=== PATIENT | male | born 1995 | race Hispanic/Latino ===

== ENCOUNTER 2017-06-24 16:19 | Emergency (ER) | payer BC, MEDICAID, OTHER ==
[2017-06-24 16:20] VITALS: BMI 23.5
[2017-06-24 16:34] VITALS: TEMP 98
--- NOTE | 2017-06-24 16:52 | C.PDOC ---
History Of Present Illness 22 year old male presents to the ED with complaints of pain to first and second toes of the right foot after slipping and stubbing toes on steps 20 minutes prior to arrival. Patient denies changes in sensation or other complaints at this time. Time Seen by Provider: 06/24/17 16:30 Chief Complaint (Nursing): Lower Extremity Problem/Injury History Per: Patient History/Exam Limitations: no limitations Onset/Duration Of Symptoms: Mins Current Symptoms Are (Timing): Still Present Recent travel outside of the [place]: No - Ankle/Foot Description Of Injury: Struck With Object ("stubbed" his foot ) Past Medical History Reviewed: Historical Data, Nursing Documentation, Vital Signs Vital Signs: Last Vital Signs Temp 98 F 06/24/17 16:29 Pulse 100 H 06/24/17 16:29 Resp 20 06/24/17 16:29 BP 112/74 06/24/17 16:29 Pulse Ox 100 06/24/17 18:04 - [facility] Procedures OTHER GROUP THERAPY (05/16/13) Family History: States: Other Other Family History: Non-contributory. - Social History Hx Tobacco Use: Yes Hx Alcohol Use: Yes Hx Substance Use: No - Immunization History Hx Tetanus Toxoid Vaccination: No Hx Influenza Vaccination: No Hx Pneumococcal Vaccination: No Review Of Systems Constitutional: Negative for: Fever Cardiovascular: Negative for: Chest Pain Respiratory: Negative for: Shortness of Breath Gastrointestinal: Negative for: Nausea, Vomiting Musculoskeletal: Positive for: Foot Pain (right first and second toe pain ) Neurological: Negative for: Weakness, Numbness Physical Exam - Physical Exam Appears: Non-toxic, No Acute Distress Skin: Warm, Dry Head: Atraumatic Eye(s): bilateral: Normal Inspection Chest: Symmetrical, No Deformity Extremity: Normal ROM, Tenderness (Tenderness to first and second toes of the right foot ), No Pedal Edema, No Calf Tenderness, Capillary Refill (good capillary refill, less than two seconds ), No Deformity, No Swelling, Other (No tenderness over right ankle or dorsum of the foot) Pulses: Left Dorsalis Pedis: Normal, Right Dorsalis Pedis: Normal Neurological/Psych: Oriented x3, Normal Speech, Normal Cognition, Normal Motor, Normal Sensation Gait: Steady ED Course And Treatment O2 Sat by Pulse Oximetry: 100 (room air ) - Other Rad Right Foot Radiographs X-Ray: Interpreted by Me, Viewed By Me Interpretation: FINDINGS: BONES: Mildly displaced fracture of the proximal 1st phalanx with intra-articular extension. The remainder the visualized osseous structures appear intact. JOINTS: No dislocation. SOFT TISSUES: Soft tissue swelling. No evidence of radiopaque foreign body. OTHER FINDINGS: None. IMPRESSION: Mildly displaced fracture of the proximal 1st phalanx with intra-articular extension. Soft tissue swelling. Progress Note: Right foot X-ray was taken. Patient was given Toradol and ice was applied. Medical Decision Making Medical Decision Making: xr r foot- intra-articular fracture distal phalanx great toe podiatry resident came and eval in the ED and placed surgical shoe. pt to f/u in the office w Dr Hilliard. Disposition - Disposition Referrals: Ade Hilliard DPM [Staff Provider] - Disposition: HOME/ ROUTINE Disposition Time: 18:00 Condition: STABLE Additional Instructions: Please follow up with the foot doctor. Return to the ER for any worsening symptoms or for any other concerns. Prescriptions: Acetaminophen with Codeine [Tylenol with Codeine #3 Tablet] 1 each PO Q4H PRN # 6 tablet PRN Reason: Pain, Moderate (4-7) Naproxen [Naprosyn] 500 mg PO Q12H PRN #10 tablet PRN Reason: Pain, Moderate (4-7) Instructions: Toe Fracture (ED) Forms: [facility] (Belgian), Work Excuse - Clinical Impression Clinical Impression: Fracture of great toe - Scribe Statement The provider has reviewed the documentation as recorded by the Tyronibmolly See All medical record entries made by the Tyronibmolly were at my direction and personally dictated by me. I have reviewed the chart and agree that the record accurately reflects my personal performance of the history, physical exam, medical decision making, and the department course for this patient. I have also personally directed, reviewed, and agree with the discharge instructions and disposition.
[2017-06-24] MEDS ORDERED: Oxycodone/Acetaminophen 5/325 mg Tab PO STA (17:47)
--- NOTE | 2017-06-24 17:54 | RAD ---
PROCEDURE: Left Foot Radiographs. HISTORY: stubbed 1st-2nd toes COMPARISON: None available. FINDINGS: BONES: Mildly displaced fracture of the proximal 1st phalanx with intra-articular extension. The remainder the visualized osseous structures appear intact. JOINTS: No dislocation. SOFT TISSUES: Soft tissue swelling. No evidence of radiopaque foreign body. OTHER FINDINGS: None. IMPRESSION: Mildly displaced fracture of the proximal 1st phalanx with intra-articular extension. Soft tissue swelling.
--- NOTE | 2017-06-24 18:05 | CP.PCM.CON ---
History of Present Illness - History of Present Illness History of Present Illness: 22 y/o male with no significant PMHx seen at bedside in ED complaining of right toe pain secondary to trauma. Patient states that he was at his apartment complex and slipped which caused him to stub his right toe. Patient states that the injury occured about an hour ago. Patient rates his pain as 10/10 on VAS but states that it is well managed with the pain medication. Patient denies of any other pedal complains at this time. Patient denies of any recent F/N/V/C/SOB /CP. PMHx: Denies PSHx: Denies Allergies: Fruits SHx: 1 Pack a week smoking, occasional EtOH, denies of any illicit drug usage Review of Systems - Constitutional Constitutional: As Per HPI Past Patient History - Infectious Disease Hx of Infectious Diseases: None - Past Social History Smoking Status: Light Smoker < 10 Cigarettes Daily - CARDIAC Hx Cardiac Disorders: No - PULMONARY Hx Tuberculosis: No - NEUROLOGICAL HX Cerebrovascular Accident: No - HEMATOLOGICAL/ONCOLOGICAL Hx Cancer: No - PSYCHIATRIC Hx Substance Use: No - SURGICAL HISTORY Hx Surgeries: No - ANESTHESIA Hx Anesthesia: No Meds Home Medications: Home Medication List Medication Instructions Recorded Confirmed Type Acetaminophen with Codeine 1 each PO Q4H PRN #6 tablet 06/24/17 Rx [Tylenol with Codeine #3 Tablet] Naproxen [Naprosyn] 500 mg PO Q12H PRN #10 tablet 06/24/17 Rx Allergies/Adverse Reactions: Allergies Allergy/AdvReac Type Severity Reaction Status Date / Time apple Allergy SWELLING Verified 06/24/17 16:32 plum Allergy SWELLING Verified 06/24/17 16:32 peaches Allergy SWELLING Uncoded 06/24/17 16:32 pears Allergy SWELLING Uncoded 06/24/17 16:32 Physical Exam - Constitutional Appears: Well, Non-toxic, No Acute Distress - Extremities Exam Additional comments: Bilateral LE exam: VASC: DP/PT pulses are palpable 2/4 b/l, 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: < 3 sec to all digits, TG: warm to cool from proximal to distal, mild non-pitting edema noted at the distal tip of the right hallux with surrounding erythema DERM: no open lesions, no interdigital maceration, no clinical suspicion of active infection NEURO: protective sensation grossly intact ORTHO: pain on palpation of the distal right hallux, pain on active and passive ROM of the right hallux, no pain on ROM at R first ray, no pain on palpation of the sessamoid, active and passive ROM within normal limit in all 4 compartments , MMT: 5/5 on DF, PF, inversion and eversion bilaterally - Neurological Exam Neurological exam: Alert, Oriented x3 - Psychiatric Exam Psychiatric exam: Normal Affect, Normal Mood Results - Vital Signs Recent Vital Signs: Last Vital Signs Temp 98 F 06/24/17 16:29 Pulse 100 H 06/24/17 16:29 Resp 20 06/24/17 16:29 BP 112/74 06/24/17 16:29 Pulse Ox 100 06/24/17 17:32 Assessment & Plan - Assessment and Plan (Free Text) Assessment: 22 y/o male seen at bedside in ED for pain and swelling of the right hallux secondary to non-displaced, intra-articular fracture of the distal phalanx Plan: Patient seen and evaluated at bedside in ED Patient discussed in details with attending Dr. Babak Denise reviewed (afebrile) X-rays taken and evaluated: -Vertical radiolucent line extending into DIPJ noted at the distal phalanx of the R hallux on an AP view indicating a fracture. No displacement of the fracture noted and alignment at the joint well preserved Coban applied to the Right hallux Patient educated to Ice and elevate the RLE Patient's right foot placed in a post-op shoe Patient educated to remain in a post-op shoe at all times Patient educated the possible consequences of not being compliant with the treatment plan Patient educated to take over the counter ibuprofen if he has too much pain Patient demonstrated verbal understanding Thank you for allowing the podiatry team to take part in patient's care - Date & Time Date: 06/24/17 Time: 18:17
[2017-06-24] MEDS ORDERED: Oxycodone/Acetaminophen 5/325 mg Tab ONE (18:09)
[2017-06-24 18:39] VITALS: BP 112/65; PULSE 98; RESP 18; O2SAT 98
== END 2017-06-24 18:40 | disposition home or self-care (01) ==
LOC: C.ER 16:19
DX: S92.421A Displaced fracture of distal phalanx of right great toe, initial encounter for closed fracture (principal); W22.8XXA Striking against or struck by other objects, initial encounter
CPT/HCPCS: 73630; 96372; 99285; J1885

== ENCOUNTER 2017-07-05 22:12 | Emergency (ER) | payer MEDICAID ==
[2017-07-05 22:12] VITALS: BMI 23.5
[2017-07-05 22:20] VITALS: BP 115/74; PULSE 78; RESP 18; TEMP 98.1; O2SAT 100
--- NOTE | 2017-07-05 22:42 | C.PDOC ---
History Of Present Illness 22 year old male who presents to the ER with a complaint of right foot pain. Patient was recently see in the ED on 06/24/17 after sustaining a fracture to the right great toe. Patient reports he stubbed his toe on a mirror earlier today and states his coworker also stepped on foot, but he was wearing ortho shoe. Patient notes he had an appointment with podiatry on Friday; however, he was not able to go due to work and school. Patient states he has run out of the pain medication he was given during his last visit and is requesting a refill. Denies weakness or numbness. Time Seen by Provider: 07/05/17 22:30 Chief Complaint (Nursing): Lower Extremity Problem/Injury History Per: Patient History/Exam Limitations: no limitations Onset/Duration Of Symptoms: Hrs Current Symptoms Are (Timing): Still Present Recent travel outside of the [place]: No - Ankle/Foot Description Of Injury: Struck With Object Currently Unable To: Bear Weight Past Medical History Reviewed: Historical Data, Nursing Documentation, Vital Signs Vital Signs: Last Vital Signs Temp 98.1 F 07/05/17 22:17 Pulse 78 07/05/17 22:17 Resp 18 07/05/17 22:17 BP 115/74 07/05/17 22:17 Pulse Ox 100 07/05/17 23:16 - Medical History PMH: Fractures (toe) Surgical History: No Surg Hx - [facility] Procedures OTHER GROUP THERAPY (05/16/13) Family History: States: Unknown Family Hx - Social History Hx Tobacco Use: Yes Hx Alcohol Use: Yes Hx Substance Use: No - Immunization History Hx Tetanus Toxoid Vaccination: No Hx Influenza Vaccination: No Hx Pneumococcal Vaccination: No Review Of Systems Musculoskeletal: Positive for: Foot Pain Neurological: Negative for: Weakness, Numbness Physical Exam - Physical Exam Appears: Non-toxic Skin: Normal Color, Warm, Dry Head: Atraumatic, Normacephalic Eye(s): bilateral: Normal Inspection Oral Mucosa: Moist Neck: Normal ROM Chest: Symmetrical Extremity: Normal ROM, Tenderness (right great toe), Capillary Refill (Good < 2seconds), Swelling (Mild to right great toe) Pulses: Left Dorsalis Pedis: Normal, Right Dorsalis Pedis: Normal Neurological/Psych: Oriented x3, Normal Speech Gait: Steady ED Course And Treatment O2 Sat by Pulse Oximetry: 100 (Room air) Pulse Ox Interpretation: Normal Medical Decision Making Medical Decision Making: Impression: 22 year old male with fracture to great toe. Patient refuses x-rays and is requesting a refill of his pain medication until he can follow up with podiatry. Disposition Counseled Patient/Family Regarding: Diagnosis, Need For Followup, Rx Given - Disposition Referrals: Ade Hilliard DPM [Staff Provider] - Disposition: HOME/ ROUTINE Disposition Time: 22:40 Condition: STABLE Additional Instructions: Please follow up with podiatry take pain medicine as needed Prescriptions: traMADol [Ultram] 50 mg PO Q8 #20 tab Instructions: Toe Fracture (ED) Forms: [employer] (German), Work Excuse - POA Present On Arrival: None - Clinical Impression Clinical Impression: Fracture of great toe - Scribe Statement The provider has reviewed the documentation as recorded by the Scribe Maikel Quesada All medical record entries made by the Scribe were at my direction and personally dictated by me. I have reviewed the chart and agree that the record accurately reflects my personal performance of the history, physical exam, medical decision making, and the department course for this patient. I have also personally directed, reviewed, and agree with the discharge instructions and disposition.
== END 2017-07-05 23:05 | disposition home or self-care (01) ==
LOC: C.ER 22:12
DX: S92.401G Displaced unspecified fracture of right great toe, subsequent encounter for fracture with delayed healing (principal); W22.8XXD Striking against or struck by other objects, subsequent encounter

== ENCOUNTER 2017-11-22 14:16 | Emergency (ER) | payer MEDICAID ==
[2017-11-22 14:16] VITALS: BMI 23.5
[2017-11-22 16:21] LABS: URINE BACTERIA MOD (<OCC); URINE BILIRUBIN NEGATIVE (NEGATIVE); URINE BLOOD NEGATIVE (NEGATIVE); URINE CLARITY Clear (Clear); URINE COLOR Yellow (YELLOW); URINE GLUCOSE (UA) NORMAL (Normal); URINE NITRATE NEGATIVE (NEGATIVE); URINE PROTEIN NEGATIVE (NEGATIVE); URINE UROBILINOGEN NORMAL mg/dL (0.2-1.0)
[2017-11-22 16:23] LABS: URINE LEUKOCYTE ESTERASE 3+ Leu/uL (Negative)
[2017-11-22] MEDS ORDERED: cefTRIAXone (Rocephin) 250 mg Inj IM STA (16:54)
--- NOTE | 2017-11-22 17:36 | C.PDOC ---
Time Seen by Provider: 11/22/17 16:42 Chief Complaint (Nursing): Male Genitourinary History Per: Patient Onset/Duration Of Symptoms: Days (3) Current Symptoms Are (Timing): Still Present Severity: Moderate Quality Of Discomfort: Burning Associated Symptoms: Urinary Symptoms Alleviating Factors: None Additional History Per: Prior Records Past Medical History Reviewed: Historical Data, Nursing Documentation, Vital Signs Vital Signs: Last Vital Signs Temp 98.6 F 11/22/17 14:47 Pulse 97 H 11/22/17 14:47 Resp 16 11/22/17 14:47 BP 109/68 11/22/17 14:47 Pulse Ox 98 11/22/17 14:47 - Medical History PMH: No Chronic Diseases, Fractures (toe) Surgical History: No Surg Hx - [facility] Procedures OTHER GROUP THERAPY (05/16/13) Family History: States: Unknown Family Hx - Social History Hx Tobacco Use: Yes Hx Alcohol Use: Yes Hx Substance Use: No - Immunization History Hx Tetanus Toxoid Vaccination: No Hx Influenza Vaccination: No Hx Pneumococcal Vaccination: No Review Of Systems Except As Marked, All Systems Reviewed And Found Negative. Constitutional: Negative for: Fever, Weakness Cardiovascular: Negative for: Chest Pain Respiratory: Negative for: Shortness of Breath Gastrointestinal: Negative for: Vomiting, Abdominal Pain, Diarrhea Genitourinary: Positive for: Dysuria, Penile Discharge. Negative for: Frequency , Scrotal Pain Musculoskeletal: Negative for: Neck Pain, Back Pain Skin: Negative for: Rash Neurological: Negative for: Weakness, Numbness Physical Exam - Physical Exam Appears: Non-toxic, No Acute Distress Skin: Normal Color, Warm, Dry, No Rash Head: Atraumatic, Normacephalic Eye(s): bilateral: Normal Inspection, PERRL, EOMI Neck: Normal ROM, Supple Gastrointestinal/Abdominal: Soft, No Tenderness Back: No CVA Tenderness Male Genital: No Testicular Tenderness, No Testicular Swelling, No Inguinal Tenderness, No Inguinal Swelling, No Scrotal Swelling, No Circumcised, Other ( white/yellow discharge) Extremity: Normal ROM Neurological/Psych: Oriented x3, Normal Motor, Normal Sensation ED Course And Treatment - Laboratory Results Lab Interpretation: Abnormal Interpretation Of Abnormal: Bacturia O2 Sat by Pulse Oximetry: 98 Pulse Ox Interpretation: Normal Medical Decision Making Medical Decision Making: Pt has symptoms/signs of urethritis, but has bacturia on the U/A. Urine GC/ Chlam and C&S sent. Disposition Counseled Patient/Family Regarding: Studies Performed, Diagnosis, Need For Followup, Rx Given - Disposition Referrals: Tessy Tipton MD [Staff Provider] - Disposition: HOME/ ROUTINE Disposition Time: 17:37 Condition: STABLE Additional Instructions: Drink plenty of fluids. Follow up with a Urologist for further evaluation and treatment. Return to the ER if you develop fever, vomiting, abdominal pain, testicle pain, back pain worsening of symptoms or if you have any other concerns. Prescriptions: Ciprofloxacin [Cipro] 1 tab PO BID #14 tab Instructions: Nonspecific Urethritis in Men (ED) - Clinical Impression Clinical Impression: Urethritis
[2017-11-22 17:52] VITALS: BP 109/72; PULSE 80; RESP 18; TEMP 98.3; O2SAT 99
== END 2017-11-22 17:50 | disposition home or self-care (01) ==
LOC: C.ER 14:16
DX: N34.2 Other urethritis (principal); Z72.0 Tobacco use
CPT/HCPCS: 81001; 87086; 87491; 87591; 96372; 99284; J0696

== ENCOUNTER 2018-01-17 07:35 | Emergency (ER) | payer MEDICAID ==
[2018-01-17 07:35] VITALS: BMI 23.5
[2018-01-17 07:48] VITALS: BP 121/82; PULSE 73; RESP 18; TEMP 98.2; O2SAT 100
--- NOTE | 2018-01-17 07:53 | C.PDOC ---
History Of Present Illness 22 year old male, with no significant PMHx, presents to the ED for evaluation of a "bite" to his chest which he noticed 2-3 days ago. Pt notes he has little bumps all over his chest, one worse then others. Patient states he last shaved his chest 2 weeks ago. Denies itching, fever, discharge, or pain. Tetanus shot was 1 year ago. Time Seen by Provider: 01/17/18 07:49 Chief Complaint (Nursing): Abnormal Skin Integrity History Per: Patient History/Exam Limitations: no limitations Onset/Duration Of Symptoms: Days (2-3) Current Symptoms Are (Timing): Still Present Location Of Injury: Anterior: Chest Quality Of Symptoms: denies: Swollen, Draining Additional History Per: Patient Past Medical History Reviewed: Historical Data, Nursing Documentation, Vital Signs Vital Signs: Last Vital Signs Temp 98.2 F 01/17/18 07:45 Pulse 73 01/17/18 07:45 Resp 18 01/17/18 07:45 BP 121/82 01/17/18 07:45 Pulse Ox 100 01/17/18 08:06 - Medical History PMH: Fractures (toe) Surgical History: No Surg Hx - [facility] Procedures OTHER GROUP THERAPY (05/16/13) Family History: States: Unknown Family Hx - Social History Hx Tobacco Use: Yes Hx Alcohol Use: Yes Hx Substance Use: No - Immunization History Hx Tetanus Toxoid Vaccination: No Hx Influenza Vaccination: No Hx Pneumococcal Vaccination: No Review Of Systems Constitutional: Negative for: Fever, Chills Physical Exam - Physical Exam Appears: Non-toxic, No Acute Distress Skin: Warm, Dry, Other ((+) L upper chest warm : central area of induration with 2 cm area of erythema ; multiple areas of erythema at the base of hair follicles ) Head: Atraumatic, Normacephalic Eye(s): bilateral: Normal Inspection, EOMI Nose: Normal Oral Mucosa: Moist Neck: Normal ROM, Supple Chest: Symmetrical, No Deformity, No Tenderness Cardiovascular: Rhythm Regular Respiratory: Normal Breath Sounds, No Rales, No Rhonchi, No Wheezing Extremity: Normal ROM, Capillary Refill (less than 2 seconds ) Neurological/Psych: Oriented x3, Normal Speech, Normal Cognition ED Course And Treatment O2 Sat by Pulse Oximetry: 100 (on RA) Pulse Ox Interpretation: Normal Progress Note: On reassessment, patient is resting comfortably, is showing no signs of distress, and is stable for discharge. No area of fluctuance . Instructed warm compresses and wound check in 2 days. Advised to follow up with his PMD within 1-2 days for further evaluation and/or return to the ED if symptoms persist or worsen. Disposition - Disposition Disposition: HOME/ ROUTINE Disposition Time: 08:00 Condition: STABLE Additional Instructions: Follow up with primary medical doctor in 1-3 days without fail for further evaluation. Take medications as prescribed. Return to the emergency department at any time if symptoms persist or worsen. 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 - Scribe Statement The provider has reviewed the documentation as recorded by the Scribe (Clara Norris) All medical record entries made by the Scribe were at my direction and personally dictated by me. I have reviewed the chart and agree that the record accurately reflects my personal performance of the history, physical exam, medical decision making, and the department course for this patient. I have also personally directed, reviewed, and agree with the discharge instructions and disposition.
== END 2018-01-17 08:28 | disposition home or self-care (01) ==
LOC: C.ER 07:35
DX: L03.313 Cellulitis of chest wall (principal); L73.9 Follicular disorder, unspecified

== ENCOUNTER 2018-08-19 16:11 | Emergency (ER) | payer MEDICAID ==
[2018-08-19 16:12] VITALS: BMI 23.5
[2018-08-19 16:24] VITALS: TEMP 99
--- NOTE | 2018-08-19 16:55 | C.PDOC ---
History Of Present Illness 23yo male, comes to ER for evaluation of redness, swelling and pain to his right axilla. Patient states it has been increasing in size x 1.5 weeks; he was seen by his PMD who prescribed him antibiotics. Otherwise, he denies any fever or chills. Patient denies any arm numbness or weakness. Time Seen by Provider: 08/19/18 16:50 Chief Complaint (Nursing): Abnormal Skin Integrity History Per: Patient History/Exam Limitations: no limitations Onset/Duration Of Symptoms: Days Current Symptoms Are (Timing): Still Present Quality Of Symptoms: Painful, Swollen Additional History Per: Patient Past Medical History Reviewed: Historical Data, Nursing Documentation, Vital Signs Vital Signs: Last Vital Signs Temp 99 F 08/19/18 16:22 Pulse 87 08/19/18 16:22 Resp 16 08/19/18 16:22 BP 113/81 08/19/18 16:22 Pulse Ox 99 08/19/18 16:22 - Medical History PMH: No Chronic Diseases, Fractures (toe) Surgical History: No Surg Hx - [facility] Procedures OTHER GROUP THERAPY (05/16/13) Family History: States: Unknown Family Hx - Social History Hx Tobacco Use: Yes Hx Alcohol Use: Yes Hx Substance Use: No - Immunization History Hx Tetanus Toxoid Vaccination: No Hx Influenza Vaccination: No Hx Pneumococcal Vaccination: No Review Of Systems Constitutional: Negative for: Fever, Chills Skin: Positive for: Other (abscess right axilla) Physical Exam - Physical Exam Appears: Non-toxic, No Acute Distress Skin: Warm, Dry Neck: Supple Chest: Symmetrical Cardiovascular: Rhythm Regular Respiratory: Normal Breath Sounds Extremity: Normal ROM, No Deformity, Other (2 abscesses noted to right axilla; 2cm diameter fluctuance and 1cm diameter fluctuance. Surrounding erythema with streaking as well.) Pulses: Right Radial: Normal Neurological/Psych: Oriented x3 ED Course And Treatment O2 Sat by Pulse Oximetry: 99 (RA) Pulse Ox Interpretation: Normal Progress Note: I&D, see procedure note. Patient to be d/c home with wound care instructions and told to follow up in 2-3 days. - Incision & Drainage Of Abscess Anesthesia: Lidocaine 1% Used During Procedure: Continuous Pulse Oximetry Prep Used: Sterile Water Procedure: Incised W/Scalpel Blade#: (11), Drained Pus (copious), Irrigated Cavity W/Saline, Packed W/Gauze Medical Decision Making Medical Decision Making: douglas; comes in w abscesses under right arm in axilla. been increasing in size x 1.5 wks. went to pmd who rxd abx. no numbness arm. no fc. ex: rt axilla w 2cm dm fluctuant abscess. 1cm dm fluctuant abscess. ttp. erythema w streaking. id. lido 2. 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 Disposition - Disposition Referrals: [facility] Lisa Mckeon, [Non-Staff] - Disposition: HOME/ ROUTINE Disposition Time: 17:40 Condition: IMPROVED Additional Instructions: SOUMYA HOWARD, thank you for letting us take care of you today. Your provider was Deric Bassett DO and you were treated for SKIN INFECTION. The emergency medical care you received today was directed at your acute symptoms. If you were prescribed any medication, please fill it and take as directed. It may take several days for your symptoms to resolve. Return to the Emergency Department if your symptoms worsen, do not improve, or if you have any other problems. Please contact your doctor or call one of the physicians/clinics you have been referred to that are listed on the Patient Visit Information form that is included in your discharge packet. Bring any paperwork you were given at discharge with you along with any medications you are taking to your follow up visit. Our treatment cannot replace ongoing medical care by a primary care provider outside of the emergency department. Thank you for allowing the [facility] team to be part of your care today. Keep area clean and dry. Continue taking the antibiotics already prescribed by your primary care doctor. Follow up with your primary care doctor or the emergency room in 2 days for packing removal. Instructions: Skin Abscess, Wound Incision and Drainage (DC) Forms: [employer] (Bangladeshi) - Clinical Impression Clinical Impression: Skin abscess - Scribe Statement The provider has reviewed the documentation as recorded by the Edil Torres Provider Attestation: All medical record entries made by the Tyronibmolly were at my direction and personally dictated by me. I have reviewed the chart and agree that the record accurately reflects my personal performance of the history, physical exam, medical decision making, and the department course for this patient. I have also personally directed, reviewed, and agree with the discharge instructions and disposition.
[2018-08-19] MEDS ORDERED: Lidocaine 2% MPF (5 ml) Inj ONE ×2 (17:26→17:27)
[2018-08-19] MEDS ORDERED: Lidocaine 2% Inj (20ml) INFIL ONE (17:29)
[2018-08-19 18:13] VITALS: BP 118/73; PULSE 68; RESP 18
[2018-08-19 18:32] VITALS: O2SAT 99
== END 2018-08-19 18:05 | disposition home or self-care (01) ==
LOC: C.ER 16:11
DX: L02.411 Cutaneous abscess of right axilla (principal)
CPT/HCPCS: 10060; 87070; 87181; 96372; 99283; J1885

== ENCOUNTER 2018-09-03 19:02 | Emergency (ER) | payer MEDICAID ==
[2018-09-03 19:03] VITALS: BMI 23.5
[2018-09-03 19:23] VITALS: BP 122/73; PULSE 87; RESP 20; TEMP 99.5; O2SAT 99
--- NOTE | 2018-09-03 19:29 | C.PDOC ---
History Of Present Illness 23 y/o male presents to the ER complaining of redness to the right axilla which has been present for the past 2 days. Patient states that he was evaluated for an abscess to the right axilla in [facility] a few weeks ago.At the time, he was treated with Augmentin. He was called and instructed to change his antibiotics, but he never changed his antibiotics. Denies having fever and chills. Time Seen by Provider: 09/03/18 19:25 Chief Complaint (Nursing): Abnormal Skin Integrity History Per: Patient History/Exam Limitations: no limitations Onset/Duration Of Symptoms: Days Current Symptoms Are (Timing): Still Present Severity: Moderate Past Medical History Reviewed: Historical Data, Nursing Documentation, Vital Signs Vital Signs: Last Vital Signs Temp 99.5 F 09/03/18 19:22 Pulse 87 09/03/18 19:22 Resp 20 09/03/18 19:22 BP 122/73 09/03/18 19:22 Pulse Ox 99 09/03/18 19:22 - Medical History PMH: Fractures (toe) Surgical History: No Surg Hx - [facility] Procedures OTHER GROUP THERAPY (05/16/13) Family History: States: No Known Family Hx - Social History Hx Tobacco Use: Yes Hx Alcohol Use: Yes Hx Substance Use: No - Immunization History Hx Tetanus Toxoid Vaccination: No Hx Influenza Vaccination: No Hx Pneumococcal Vaccination: No Review Of Systems Except As Marked, All Systems Reviewed And Found Negative. Constitutional: Negative for: Fever, Chills Skin: Positive for: Other (redness to right axilla) Physical Exam - Physical Exam Appears: Non-toxic, No Acute Distress Skin: Normal Color, Warm, Dry, Other (erythema to right axilla, no swelling, no fluctuance) Head: Atraumatic, Normacephalic Eye(s): bilateral: Normal Inspection Nose: Normal Oral Mucosa: Moist Neck: Supple Chest: Symmetrical Extremity: Normal ROM, Tenderness (minimal tenderness to right axilla) Neurological/Psych: Oriented x3, Normal Speech ED Course And Treatment O2 Sat by Pulse Oximetry: 99 (RA) Pulse Ox Interpretation: Normal Progress Note: I reviewed patient's chart from previous visit. patient had I &D of abscess, was discharged of Augmentin. Wound culture came back pos for MRSA. I called [facility] pharmacy and they noted that patient had an electronic Rx for Clindamycin that he never picked up. Patient was given a new Rx for Clindamycin and was instructed to put warm compresses to affected area. He has been instructed to f/u with PMD and to return to ER if abscess becomes worse. Disposition - Disposition Disposition: HOME/ ROUTINE Disposition Time: 19:48 Condition: STABLE Additional Instructions: Follow up with your PMD within 1-2 days. Return to ED if feel worse. Instructions: Boil, Methicillin-Resistant Staphylococcus aureus (MRSA) Forms: [employer] (E[place]ian) - Clinical Impression Clinical Impression: Abscess - PA / [facility] / Resident Statement MD/DO has reviewed & agrees with the documentation as recorded. - Scribe Statement The provider has reviewed the documentation as recorded by the Edil Spann Provider Attestation All medical record entries made by the Tyronibmolly were at my direction and personally dictated by me. I have reviewed the chart and agree that the record accurately reflects my personal performance of the history, physical exam, medical decision making, and the department course for this patient. I have also personally directed, reviewed, and agree with the discharge instructions and disposition.
== END 2018-09-03 19:59 | disposition home or self-care (01) ==
LOC: C.ER 19:02
DX: L02.411 Cutaneous abscess of right axilla (principal); Z72.0 Tobacco use